=== PATIENT | male | born 1945 | race Caucasian/White ===

== ENCOUNTER → 2019-09-23 10:39 | Day surgery (SDC) | payer MEDICARE, SELFPAY ==
[2019-09-22 13:30] VITALS: BMI 34.3
[2019-09-23] VITALS (7 sets, daily range): BP systolic 102–139; BP diastolic 71–85; PULSE 64–75; RESP 16–20; TEMP 37.4; O2SAT 98–100
--- NOTE | 2019-09-23 12:53 | SUR.PREOP ---
Patient arrives to [facility] room 5 for Pacemaker Generator Change with Dr. Carvajal, oriented to unit, procedure explained, all questions answered, IV started, Labs drawn and sent, consent signed, chest shaved and cleansed, and Vitals obtained.
[2019-09-23 12:56] LABS: Basophils Absolute Auto 0.1 K/mm3 (0.0-0.1); Basophils Percent Auto 0.9 % (0.2-1.2); Eosinophils Absolute Auto 0.2 K/mm3 (0-0.3); Eosinophils Percent Auto 3.2 % (0-4.4); Hematocrit 46.5 % (42.0-52.0); Hemoglobin 15.2 g/dL (14.0-18.0); Immature Granulocyte Absolute 0.01 K/mm3 (0.00-0.031); Immature Granulocyte Percent A 0.2 % (0-0.5); Lymphocytes Absolute Auto 1.91 K/mm3 (0.9-3.2); Lymphocytes Percent Auto 32.5 % (18.3-44.2); Mean Corpuscular HGB Conc 32.7 g/dl (32-36); Mean Corpuscular Hemoglobin 31.3 pg (26-34); Mean Corpuscular Volume 95.9 fl (80-100); Mean Platelet Volume 9.7 fl (7.4-10.4); Monocytes Absolute Auto 0.6 K/mm3 (0.1-0.6); Monocytes Percent Auto 9.5 % (2.6-8.5); Neutrophils Absolute Auto 3.2 K/mm3 (1.3-6.7); Neutrophils Percent Auto 53.7 % (45.5-73.1); Platelet Count Result 179 k/mm3 (150-375); Red Blood Count 4.85 M/mm3 (4.6-6.20); Red Cell Distribution Width 13.1 % (11.5-14.5); White Blood Count 5.9 K/mm3 (4.5-10.0)
[2019-09-23 13:13] LABS: Prothrombin Time 12.5 Seconds (11.1-14.7)
[2019-09-23 13:40] LABS: Blood Urea Nitrogen 20 mg/dL (9-20); Calcium 8.6 mg/dL (8.4-10.2); Carbon Dioxide 28 mmol/L (22-30); Chloride 105 mmol/L (98-107); Estimated CRCL calculation 96 ml/min; Estimated Glomerular Filt Rate > 60; Glucose 93 mg/dL (75-110); Potassium 4.4 mmol/L (3.4-5.0); Sodium 136 mmol/L (137-145)
--- NOTE | 2019-09-23 14:37 | PM.IMHP ---
H&P: HPI History of Present Illness Chief complaint: Sick Sinus Syndrome Narrative: John Dwyer is a 74 year old male with history of pacemaker placement due to sick sinus syndrome, history of atrial fibrillation, was seen in the office and noted to have pacemaker at end of life, was scheduled for generator change, he has pacemaker that was placed more than 10 years ago, lately been feeling fatigued and tired, and noted to have end of life of the pacemaker. [facility] Social History Social History Gender identity (if verbalized by the patient): Male Meds Home Medications and Allergies Home Medications Medication Instructions Recorded Confirmed Type candesartan-hydrochlorothiazid 1 tablet PO DAILY 09/22/19 09/22/19 History cholecalciferol (vitamin D3) 25 mcg PO DAILY 09/22/19 09/22/19 History [Vitamin D3] levothyroxine 100 mcg PO DAILY 09/22/19 09/22/19 History magnesium oxide 400 mg PO DAILY 09/22/19 09/22/19 History metoprolol succinate 25 mg PO DAILY 09/22/19 09/22/19 History multivitamin 1 tablet PO DAILY 09/22/19 09/22/19 History potassium chloride 10 meq PO DAILY 09/22/19 09/22/19 History psyllium husk [Metamucil] 0.4 g PO DAILY 09/22/19 09/22/19 History rivaroxaban [Xarelto] 20 mg PO QPM 09/22/19 09/22/19 History rosuvastatin 5 mg PO DAILY 09/22/19 09/22/19 History Allergies Allergy/AdvReac Type Severity Reaction Status Date / Time No Known Allergies Allergy Verified 09/22/19 13:11 Vital Signs Vital Signs - 24 hr 09/23/19 12:52 Temperature 37.4 C Pulse Rate 75 Respiratory Rate 20 Blood Pressure 139/85 Pulse Oximetry 98 Exam Narrative: Exam Narrative: Awake alert oriented x3 not in acute distress Neck is supple no obvious JVD, no carotid bruit Chest: Good air entry bilaterally, lungs are clear to auscultation and percussion bilaterally Cardiovascular: Regular rate and rhythm, 2/6 systolic murmur noted left sternal border Abdomen: Soft nontender bowel sounds positive Extremities: No edema has good pulses distally bilaterally H&P: Results Labs Labs: Short CBC 09/23/19 Range/Units 12:39 WBC 5.9 (4.5-10.0) K/mm3 Hgb 15.2 (14.0-18.0) g/dL Hct 46.5 (42.0-52.0) % Plt Count 179 (150-375) k/mm3 BMP 09/23/19 13:20 Sodium 136 L Potassium 4.4 Chloride 105 Carbon Dioxide 28 BUN 20 Creatinine 0.80 Glucose 93 Calcium 8.6 Assessment and Plan Assessment and plan (1) Pacemaker at end of battery life: Code(s): Z45.010 - Encounter for checking and testing of cardiac pacemaker pulse generator [battery] Status: Acute Assessment and Plan: Pacemaker interrogation showed pacemaker end of life, he needed to have the battery replaced, this is considered urgent procedure, in view of the need for pacing. Xarelto was put on hold for 2 days, and the procedure was scheduled as soon as possible after holding the Xarelto. The procedure was discussed with patient, risks, benefits, alternative diagnostic and therapeutic measures were explained (2) Atrial fibrillation: Code(s): I48.91 - Unspecified atrial fibrillation Status: Acute (3) Hypertension: Code(s): I10 - Essential (primary) hypertension Status: Acute
--- NOTE | 2019-09-23 14:39 | P.SEDATION_ITS ---
Moderate Sedation Note-Pt Data Patient Data Allergies Allergy/AdvReac Type Severity Reaction Status Date / Time No Known Allergies Allergy Verified 09/22/19 13:11 Home Medications Medication Instructions Recorded Confirmed Type candesartan-hydrochlorothiazid 1 tablet PO DAILY 09/22/19 09/22/19 History cholecalciferol (vitamin D3) 25 mcg PO DAILY 09/22/19 09/22/19 History [Vitamin D3] levothyroxine 100 mcg PO DAILY 09/22/19 09/22/19 History magnesium oxide 400 mg PO DAILY 09/22/19 09/22/19 History metoprolol succinate 25 mg PO DAILY 09/22/19 09/22/19 History multivitamin 1 tablet PO DAILY 09/22/19 09/22/19 History potassium chloride 10 meq PO DAILY 09/22/19 09/22/19 History psyllium husk [Metamucil] 0.4 g PO DAILY 09/22/19 09/22/19 History rivaroxaban [Xarelto] 20 mg PO QPM 09/22/19 09/22/19 History rosuvastatin 5 mg PO DAILY 09/22/19 09/22/19 History Sedation/Anesthesia: No previous sedation/anesthesia problems (including family history). [facility] Social History Social History Gender identity (if verbalized by the patient): Male Mod Sed Physical Exam Physical Exam Pre Procedural Exam: Normal: Appearance, Eyes, Ears, Nose, Neck, Throat, Airway, Lungs, Heart Size, Heart Rate, Heart Rhythm, Neuro Exam, Abdomen, Liver, Kidneys, Spleen, Breasts, Genitalia, Extremities and Skin Hours since solid foods: 8 Hours since liquid intake: 8 Internal Medicine - PN: Obj Da Vital Signs Vital Signs: Vital Signs - 24 hr 09/23/19 12:52 Temperature 37.4 C Pulse Rate 75 Respiratory Rate 20 Blood Pressure 139/85 Pulse Oximetry 98 Labs CBC & Chem 7: 09/23/19 12:39 09/23/19 13:20 Labs: Laboratory Results - last 24 hr 09/23/19 09/23/19 09/23/19 12:39 12:39 13:20 WBC 5.9 RBC 4.85 Hgb 15.2 Hct 46.5 MCV 95.9 MCH 31.3 MCHC 32.7 RDW 13.1 Plt Count 179 MPV 9.7 Immature Gran % (Auto) 0.2 Neut % (Auto) 53.7 Lymph % (Auto) 32.5 Levy % (Auto) 9.5 H Eos % (Auto) 3.2 Baso % (Auto) 0.9 Lymph # (Auto) 1.91 Levy # (Auto) 0.6 Eos # (Auto) 0.2 Baso # (Auto) 0.1 Abs Immat Gran (auto) 0.01 Absolute Neuts (auto) 3.2 Absolute Nucleated RBC 0.0 Nucleated RBC % 0.0 PT 12.5 INR 1.0 Sodium 136 L Potassium 4.4 Chloride 105 Carbon Dioxide 28 BUN 20 Creatinine 0.80 Estim Creat Clear Calc 96 Estimated GFR > 60 Glucose 93 Calcium 8.6 ASA Classification/Sedation ASA Classification/Sedation ASA Class: II Risks: Risks, benefits and alternatives explained and patient/family accepted plan for sedation. Patient re-evaluated immediately prior to sedation. This is essential procedure, could not be delayed due to the fact that he has at end of life of his pacemaker battery
--- NOTE | 2019-09-23 14:45 | WPDCARDPROC ---
Cardiac Cath Procedure Note Date of procedure:: 09/23/19 Performing physician:: Christos Carvajal MD DATE OF PROCEDURE: September 23, 2019 PROCEDURE: 1. Dual Chamber Permanent Pacemaker generator change 2. Pacemaker pocket revision. 3. 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 CLINICAL HISTORY: Sick Sinus Syndrome and Symptomatic Bradycardia, pacemaker at end of life. PROCEDURE: In a post-absoptive state, the patient was brought to the Cardiac Catheterization Laboratory. The left hemithorax was prepped and draped in the usual sterile fashion. The skin was infiltrated with 1% Xylocaine for regional anesthesia. The area above the old pacemaker was identified, and skin cut was made, dissection was made with the cautery and knife, until the pacemaker can was identified and pulled out of the pocket. The leads were disconnected, and connected to the new can The wound was then irrigated with Ancef solution following which, subcutaneous tissues were closed with 2.0 Vicryl and hayder were used for the skin. Aquacel Ag was also applied to the pacemaker incision site along with a pressure dressing. The patient tolerated the procedure very well, experienced no difficulties, and returned to her room in good condition. Pacemaker explanted is [employer] model K 173 serial #[id number] Implanted device is [employer] a central [place] RI S1 moderate L1 on 1 serial #[id number] Measure data RA lead 1.4 mV with impedance of 470 ohms RV intrinsic is 9.0 mV with threshold of 1.1 volt at 0.4 millisecond impedance is 585 Ohm Final programming is VVIR rate of 70 MS are 130
== END | disposition home or self-care (01) ==
PROVIDERS: Visit Provider Specialist
PROC: 0JPT0PZ Removal of Cardiac Rhythm Related Device from Trunk Subcutaneous Tissue and Fascia, Open Approach (ICD-10-PCS; CPT 33228; principal; 2019-09-23 13:30)
DX: Z45.010 Encounter for checking and testing of cardiac pacemaker pulse generator [battery] (principal); R00.1 Bradycardia, unspecified; I48.91 Unspecified atrial fibrillation; I10 Essential (primary) hypertension; Z79.01 Long term (current) use of anticoagulants
CPT/HCPCS: 33208; 33228; 36415; 80048; 85025; 85610; C1785; J0690; J2250; J3010; J7040